=== PATIENT | female | born 1990 | race Two or more races ===

== ENCOUNTER 2021-11-17 20:30 | Inpatient (IN) | payer OTHER ==
[2021-11-17 21:13] VITALS: BMI 34.2
[2021-11-17] MEDS ORDERED: DINOPROSTONE 10 MG VAGINAL SUPPOSITORY VG ONE (22:15)
[2021-11-17] MEDS: LACTATED RINGERS SOLUTION 1,000 ML IV SCH (22:20)
[2021-11-17] MEDS ORDERED: PROMETHAZINE HCL 25 MG/1 ML VIAL IVPUSH PRN (23:20)
[2021-11-17] MEDS ORDERED: BUTORPHANOL TARTRATE 1 MG/ML VIAL IVPB PRN (23:20)
[2021-11-18] MEDS: LACTATED RINGERS SOLUTION 1,000 ML IV SCH ×2 (05:50→13:30)
[2021-11-18] MEDS ORDERED: OXYTOCIN 30 UNITS in 0.9% NS 30 UNIT/500 ML INFUS.BAG IVPB ONE (10:31)
[2021-11-18] MEDS ORDERED: OXYTOCIN 30 UNITS in 0.9% NS 30 UNIT/500 ML INFUS.BAG IVPB SCH (10:45)
[2021-11-18 22:36] VITALS: TEMP 98.2
[2021-11-18 22:55] VITALS: BP 112/68; PULSE 74
== END 2021-11-19 01:30 | disposition home or self-care (01) | DRG 951 ==
LOC: JLDR 20:30
PROVIDERS: ADMIT Obstetrics & Gynecology; ATTEND Obstetrics & Gynecology
PROC: 3E0P7VZ Introduction of Hormone into Female Reproductive, Via Natural or Artificial Opening (ICD-10-PCS; principal; 2021-11-17)
DX: O13.3 Gestational [pregnancy-induced] hypertension without significant proteinuria, third trimester (principal); Z3A.37 37 weeks gestation of pregnancy
CPT/HCPCS: 36415; 82570; 84156; C9803-CS; U0003; U0005

== ENCOUNTER 2021-11-30 11:20 | Inpatient (IN) | payer OTHER ==
[2021-11-30] MEDS ORDERED: ELECTROLYTE-148 SOLN 1,000 ML IV SCH (12:30)
[2021-11-30 12:43] LABS: BASO % 0.2 % (0-2.0); EOS % 0.4 % (0-4.5); HEMATOCRIT 36.1 % (32.4-45.2); HEMOGLOBIN 12.3 GM/dL (10.7-15.3); LYMPH % 13.5 % (8-40); MCH 30.3 pg (25.7-33.7); MEAN CELL VOLUME 88.9 fl (80-96); MEAN PLT VOLUME 7.9 fl (7.5-11.1); MONO % 3.3 % (3.8-10.2); NEUT % 82.6 % (42.8-82.8); PLATELET COUNT 264 10^3/uL (134-434); RBC 4.06 M/mm3 (3.60-5.2)
[2021-11-30 12:47] LABS: INR 0.94 (0.83-1.09); PROTHROMBIN TIME (PATIENT) 10.8 SEC (9.7-13.0)
[2021-11-30 12:50] LABS: ACTIVATED PTT 27.7 SECONDS (25.2-36.5)
[2021-11-30 13:06] LABS: CALCIUM 8.5 mg/dL (8.5-10.1)
[2021-11-30 13:07] LABS: BLOOD UREA NITROGEN 8.6 mg/dL (7-18)
[2021-11-30 13:10] VITALS: BMI 34.2
[2021-11-30 13:10] LABS: CREATININE 0.5 mg/dL (0.55-1.3)
[2021-11-30] MEDS ORDERED: FENTANYL/BUPIVACAINE/NS/PF - PCEA - 50 ML DISP.SYRIN EP ONE ×3 (15:46→22:35)
[2021-11-30] MEDS: FENTANYL/BUPIVACAINE/NS/PF - PCEA - 50 ML DISP.SYRIN EP SCH ×3 (16:15→22:35)
[2021-11-30] MEDS ORDERED: NALOXONE HCL 0.4 MG/ML VIAL IVPUSH PRN (16:49)
[2021-11-30] MEDS ORDERED: OXYTOCIN 20 UNITS in 0.9% NS 20 UNIT/1,000 ML INFUS.BAG IV ONE (19:58)
[2021-12-01] MEDS ORDERED: OXYTOCIN 30 UNITS in 0.9% NS 30 UNIT/500 ML INFUS.BAG IVPB SCH (01:00)
[2021-12-01] MEDS ORDERED: OXYTOCIN 30 UNITS in 0.9% NS 30 UNIT/500 ML INFUS.BAG IVPB ONE (01:14)
[2021-12-01] MEDS: FENTANYL/BUPIVACAINE/NS/PF - PCEA - 50 ML DISP.SYRIN EP SCH ×2 (02:00→19:42)
[2021-12-01] MEDS ORDERED: FENTANYL/BUPIVACAINE/NS/PF - PCEA - 50 ML DISP.SYRIN EP ONE (02:05)
[2021-12-01] MEDS ORDERED: ceFAZolin SODIUM 1 GM VIAL ONE (03:24)
[2021-12-01] MEDS ORDERED: MISOPROSTOL 200 MCG TABLET ONE (03:37)
[2021-12-01] MEDS ORDERED: ceFAZolin 2 GRAM PREMIX BAG IVPB ONE (03:40)
[2021-12-01] MEDS ORDERED: MISOPROSTOL 200 MCG TABLET NR ONE (03:45)
[2021-12-01] MEDS ORDERED: IBUPROFEN 600 MG TABLET (FP) PO PRN (03:51)
[2021-12-01] MEDS ORDERED: METHYLERGONOVINE MALEATE 0.2 MG/1 ML AMP IM PRN (03:51)
[2021-12-01] MEDS ORDERED: WITCH HAZEL 50% (TUCKS) 40 PAD/JAR PAD TP PRN (03:51)
[2021-12-01] MEDS ORDERED: BENZOCAINE 28 GM HEMORRHOIDAL OINTMENT TP PRN (03:51)
[2021-12-01] MEDS ORDERED: BISACODYL 10 MG SUPP.RECT RC PRN (03:51)
[2021-12-01] MEDS ORDERED: oxyCODONE HCL 5 MG TABLET PO PRN (03:51)
[2021-12-01] MEDS ORDERED: ACETAMINOPHEN 325 MG TABLET (FP) PO PRN (03:51)
[2021-12-01] MEDS ORDERED: BENZOCAINE 20% 57 GM BOTTLE TP PRN (03:51)
[2021-12-01] MEDS ORDERED: OXYTOCIN 20 UNITS in 0.9% NS 20 UNIT/1,000 ML INFUS.BAG IV SCH (04:00)
[2021-12-01] MEDS: FERROUS SO4 325 MG TABLET (FP) PO SCH ×3 (08:27→17:41)
[2021-12-01 08:36] LABS: HEMATOCRIT 31.2 % (32.4-45.2); HEMOGLOBIN 10.6 GM/dL (10.7-15.3); MCH 30.4 pg (25.7-33.7); MCHC 34.1 g/dl (32.0-36.0); MEAN PLT VOLUME 7.9 fl (7.5-11.1); PLATELET COUNT 221 10^3/uL (134-434); WHITE BLOOD COUNT 22.7 K/mm3 (4.0-10.0)
[2021-12-01 09:38] LABS: ANISOCYTOSIS 1+; MACROCYTOSIS 0
[2021-12-01] MEDS: PRENATAL VITAMINS W/ FOLIC ACID TABLET (FP) PO SCH (10:12)
[2021-12-02 06:41] LABS: BASO % 0.3 % (0-2.0); EOS % 1.1 % (0-4.5); HEMATOCRIT 29.4 % (32.4-45.2); HEMOGLOBIN 9.9 GM/dL (10.7-15.3); LYMPH % 19.6 % (8-40); MCH 30.2 pg (25.7-33.7); MCHC 33.7 g/dl (32.0-36.0); MEAN CELL VOLUME 89.8 fl (80-96); MEAN PLT VOLUME 7.9 fl (7.5-11.1); MONO % 4.5 % (3.8-10.2); NEUT % 74.5 % (42.8-82.8); PLATELET COUNT 203 10^3/uL (134-434); RBC 3.28 M/mm3 (3.60-5.2); RDW 14.1 % (11.6-15.6); WHITE BLOOD COUNT 17.1 K/mm3 (4.0-10.0)
[2021-12-02] MEDS: FERROUS SO4 325 MG TABLET (FP) PO SCH ×2 (08:19→14:14)
[2021-12-02] MEDS: PRENATAL VITAMINS W/ FOLIC ACID TABLET (FP) PO SCH (10:31)
[2021-12-02 15:34] VITALS: BP 104/64; PULSE 70; TEMP 98.7
[2021-12-02] MEDS ORDERED: SENNOSIDES/DOCUSATE COMBO (SENNA PLUS) TABLET (UD) PO PRN (22:00)
== END 2021-12-02 16:45 | disposition home or self-care (01) | DRG 560 ==
LOC: JDEL 11:20 → JLDR 12:00 → J3W 12-01 05:22
PROVIDERS: ADMIT Specialist; ATTEND Specialist
PROC: 10E0XZZ Delivery of Products of Conception, External Approach (ICD-10-PCS; principal; 2021-12-01)
PROC: 0W8NXZZ Division of Female Perineum, External Approach (ICD-10-PCS; 2021-12-01)
PROC: 0KQM0ZZ Repair Perineum Muscle, Open Approach (ICD-10-PCS; 2021-12-01)
DX: O70.1 Second degree perineal laceration during delivery (principal); O90.81 Anemia of the puerperium; Z3A.39 39 weeks gestation of pregnancy; Z37.0 Single live birth
CPT/HCPCS: 36415; 59025; 59409; 76819-TC; 80048; 85025; 85610; 85730; 86780; 86850; 86900; 86901; C9803-CS; U0003; U0005

== ENCOUNTER 2023-06-30 14:25 | Inpatient (IN) | payer OTHER ==
[2023-06-30] MEDS: DEXTROSE 5%-LACTATED RINGERS 1,000 ML IV SCH (15:00)
[2023-06-30 16:40] VITALS: BMI 35.0
[2023-06-30] MEDS: OXYTOCIN 30 UNITS in 0.9% NS 30 UNIT/500 ML INFUS.BAG IVPB SCH (18:15)
[2023-06-30] MEDS ORDERED: OXYTOCIN 30 UNITS in 0.9% NS 30 UNIT/500 ML INFUS.BAG IVPB ONE (18:27)
[2023-06-30] MEDS: ELECTROLYTE-148 SOLN 1,000 ML IV SCH (21:00)
[2023-06-30] MEDS ORDERED: FENTANYL/BUPIVACAINE/NS/PF - PCEA - 50 ML DISP.SYRIN EP ONE (21:49)
[2023-06-30] MEDS ORDERED: LIDO 2%/EPI 1:200000 PRESRVFRE (20 ML SDVIAL) ONE (21:59)
[2023-06-30] MEDS ORDERED: BUPIVACAINE HCL/PF 0.25% (2.5MG/ML) 10 ML VIAL ONE (21:59)
[2023-06-30] MEDS ORDERED: FENTANYL CITRATE/PF 50 MCG/ML VIAL ONE (21:59)
[2023-06-30] MEDS: FENTANYL/BUPIVACAINE/NS/PF - PCEA - 50 ML DISP.SYRIN EP SCH (22:10)
[2023-06-30] MEDS ORDERED: NALOXONE HCL 0.4 MG/ML VIAL IVPUSH PRN (22:17)
[2023-06-30] MEDS ORDERED: OXYTOCIN 20 UNITS in 0.9% NS 20 UNIT/1,000 ML INFUS.BAG IV ONE (23:06)
[2023-06-30] MEDS ORDERED: LIDOCAINE HCL 1% PRESERVATIVE FREE - 30ML VIAL ONE (23:07)
[2023-06-30] MEDS: OXYTOCIN 20 UNITS in 0.9% NS 20 UNIT/1,000 ML INFUS.BAG IV SCH (23:35)
[2023-06-30] MEDS ORDERED: BISACODYL 10 MG SUPP.RECT RC PRN (23:42)
[2023-06-30] MEDS ORDERED: METHYLERGONOVINE MALEATE 0.2 MG/1 ML AMP IM PRN (23:42)
[2023-06-30] MEDS ORDERED: BENZOCAINE 20% 57 GM BOTTLE TP PRN (23:42)
[2023-06-30] MEDS ORDERED: oxyCODONE HCL 5 MG TABLET PO PRN (23:42)
[2023-06-30] MEDS ORDERED: IBUPROFEN 600 MG TABLET (FP) PO PRN (23:42)
[2023-06-30] MEDS ORDERED: WITCH HAZEL 50% (TUCKS) 40 PAD/JAR PAD TP PRN (23:42)
[2023-06-30] MEDS ORDERED: ACETAMINOPHEN 325 MG TABLET (FP) PO PRN (23:42)
[2023-07-01 08:06] LABS: BASO % 0.7 % (0-2.0); EOS % 0.4 % (0-4.5); HEMOGLOBIN 11.1 GM/dL (10.7-15.3); LYMPH % 19.5 % (8-40); MCH 30.1 pg (25.7-33.7); MCHC 33.5 g/dl (32.0-36.0); MEAN PLT VOLUME 7.4 fl (7.5-11.1); MONO % 4.2 % (3.8-10.2); NEUT % 75.2 % (42.8-82.8); PLATELET COUNT 243 10^3/uL (134-434); RBC 3.67 M/mm3 (3.60-5.2); RDW 15.3 % (11.6-15.6); WHITE BLOOD COUNT 15.3 K/mm3 (4.0-10.0)
[2023-07-01] MEDS: BENZOCAINE 28 GM HEMORRHOIDAL OINTMENT TP PRN (21:21)
[2023-07-01] MEDS: SENNOSIDES/DOCUSATE COMBO (SENNA PLUS) TABLET (UD) PO PRN (21:21)
[2023-07-01 21:55] VITALS: RESP 17
[2023-07-02 09:17] VITALS: BP 116/44; PULSE 68; TEMP 97.9
== END 2023-07-02 11:35 | disposition home or self-care (01) | DRG 560 ==
LOC: JLDR 14:25 → J3W 07-01 02:30
PROVIDERS: ADMIT Specialist; ATTEND Specialist
PROC: 10E0XZZ Delivery of Products of Conception, External Approach (ICD-10-PCS; principal; 2023-06-30)
PROC: 0HQ9XZZ Repair Perineum Skin, External Approach (ICD-10-PCS; 2023-06-30)
PROC: 0W8NXZZ Division of Female Perineum, External Approach (ICD-10-PCS; 2023-06-30)
DX: O48.0 Post-term pregnancy (principal); O99.214 Obesity complicating childbirth; O70.0 First degree perineal laceration during delivery; Z3A.40 40 weeks gestation of pregnancy; Z37.0 Single live birth
CPT/HCPCS: 36415; 80053; 85025; 85027; 85610; 85730; 86780; 86850; 86900; 86901; 87389